=== PATIENT | female | born 1980 | race Caucasian/White ===

== ENCOUNTER 2018-09-16 20:43 | Emergency (ER) | payer MEDICAID ==
[2018-09-16] MEDS ORDERED: LORazepam 1 MG Tab PO ONE (21:14)
--- NOTE | 2018-09-16 21:25 | EDM.PDOC ---
ED HPI GENERAL MEDICAL PROBLEM - General Chief Complaint: Behavioral/Psych Stated Complaint: ANXIETY Time Seen by Provider: 09/16/18 20:58 Source of Information: Reports: Patient History Limitations: Reports: No Limitations - History of Present Illness INITIAL COMMENTS - FREE TEXT/NARRATIVE: 38-year-old female presents to emergency with chief complaints of tightness in her chest and shortness of breath that started approximately 2 hours prior to arrival. She reports she has a history of anxiety. She reports that she moved from [place] about 3 weeks ago. She states that she has been stressed out lately from the move and other events that had taken place recently. She states that she was taking Xanax when necessary in the past. She has not taken anything for her anxiety prior to arrival. She reports that she has been otherwise in good health. She does admit to smoking. She reports that she has used marijuana in the past for her anxiety. She does admit being in past relationship which was "unhealthy." She does not currently have a PCP since she is new to the area Onset: Today, Sudden Onset Date: 09/16/18 Duration: Intermittent, Waxing/Waning Location: Reports: Chest. Denies: Radiates to Severity: Mild Improves with: Reports: None Worsens with: Reports: None Associated Symptoms: Reports: Chest Pain, Fever/Chills, Nausea/Vomiting, Shortness of Breath. 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: Neurological History: Reports: Migraines, Seizure Psychiatric History: Reports: ADD, ADHD, Anxiety, Depression - Past Surgical History HEENT Surgical History: Reports: Oral Surgery, Tonsillectomy Musculoskeletal Surgical History: Reports: Other (See Below) Other Musculoskeletal Surgeries/Procedures:: degenerative disk disease Social & Family History - Family History Family Medical History: Noncontributory - Tobacco Use Smoking Status *Q: Current Every Day Smoker Years of Tobacco use: 25 Packs/Tins Daily: 0.5 - Caffeine Use Caffeine Use: Reports: Soda - Recreational Drug Use Recreational Drug Use: No ED ROS GENERAL - Review of Systems Review Of Systems: ROS reveals no pertinent complaints other than HPI. Constitutional: Denies: Fever, Chills Respiratory: Reports: Shortness of Breath Cardiovascular: Reports: Chest Pain Endocrine: Reports: Fatigue GI/Abdominal: Reports: No Symptoms : Reports: No Symptoms Musculoskeletal: Reports: No Symptoms Skin: Reports: No Symptoms Neurological: Reports: No Symptoms Psychiatric: Reports: No Symptoms Hematologic/Lymphatic: Reports: No Symptoms Immunologic: Reports: No Symptoms - Physical Exam Exam: See Below Exam Limited By: No Limitations General Appearance: Alert, WD/WN, No Apparent Distress Neck: Normal Inspection, Supple, Non-Tender Respiratory/Chest: No Respiratory Distress, Lungs Clear, Normal Breath Sounds, No Accessory Muscle Use, Chest Non-Tender Cardiovascular: Normal Peripheral Pulses, Regular Rate, Rhythm, No Edema, No Gallop, No JVD, No Murmur, No Rub Neuro Exam (Abbreviated): Alert, Oriented, CN II-XII Intact, Normal Cognition, Normal Gait, Normal Reflexes, No Motor/Sensory Deficits Psychiatric: Anxious, Depressed Mood, Other (Patient is crying during the interview appears very anxious.) Skin Exam: Warm, Dry, Intact, Normal Color, No Rash EKG INTERPRETATION EKG Date: 09/16/18 Time: 21:41 Rhythm: NSR Pateros: Normal P-Wave: Present QRS: Normal ST-T: Normal QT: Normal Comparison: NA - No Prior EKG EKG Interpretation Comments: NSR, NO AVB. PROBABLE ZARINA. NO ISCHEMIC CHANGES, NO LAD/RAD. NO LVU/RUU. NO IVCDS. QTA WNLS. Course - Vital Signs Last Recorded V/S: Last Vital Signs Temp 97.2 F 09/16/18 20:58 Pulse 103 H 09/16/18 20:58 Resp 16 09/16/18 20:58 BP 174/115 H 09/16/18 22:00 Pulse Ox 100 09/16/18 20:58 - Orders/Labs/Meds Orders: Active Orders 24 hr Category Date Time Status EKG Documentation Completion [RC] STAT Care 09/16/18 21:13 Active CXR [Chest 1V Frontal] [CR] Stat Exams 09/16/18 21:13 Taken Labs: Laboratory Tests 09/16/18 09/16/18 Range/Units 21:25 21:25 WBC 7.93 (3.98-10.04) K/mm3 RBC 4.77 (3.98-5.22) M/mm3 Hgb 12.2 (11.2-15.7) gm/L Hct 38.4 (34.1-44.9) % MCV 80.5 (79.4-94.8) fl MCH 25.6 (25.6-32.2) pg MCHC 31.8 L (32.2-35.5) g/dl RDW Std Deviation 46.4 H (36.4-46.3) fL Plt Count 282 (182-369) K/mm3 MPV 11.4 (9.4-12.3) fl Neut % (Auto) 58.5 (34.0-71.1) % Lymph % (Auto) 28.8 (19.3-51.7) % [place] % (Auto) 8.2 (4.7-12.5) % Eos % (Auto) 3.3 (0.7-5.8) Baso % (Auto) 0.9 (0.1-1.2) % Neut # (Auto) 4.65 (1.56-6.13) K/mm3 Lymph # (Auto) 2.28 (1.18-3.74) K/mm3 [place] # (Auto) 0.65 H (0.24-0.36) K/mm3 Eos # (Auto) 0.26 (0.04-0.36) K/mm3 Baso # (Auto) 0.07 (0.01-0.08) K/mm3 Sodium 138 (136-145) mEq/L Potassium 3.7 (3.5-5.1) mEq/L Chloride 104 (98-107) mEq/L Carbon Dioxide 23 (21-32) mEq/L Anion Gap 14.7 (5-15) BUN 18 (7-18) mg/dL Creatinine 0.9 (0.55-1.02) mg/dL Est Cr Clr Drug Dosing 85.50 mL/min Estimated GFR (MDRD) > 60 (>60) mL/min BUN/Creatinine Ratio 20.0 H (14-18) Glucose 90 (74-106) mg/dL Calcium 8.8 (8.5-10.1) mg/dL Total Bilirubin 0.3 (0.2-1.0) mg/dL AST 19 (15-37) U/L ALT 24 (14-59) U/L Alkaline Phosphatase 98 (46-116) U/L Total Protein 7.5 (6.4-8.2) g/dl Albumin 3.5 (3.4-5.0) g/dl Globulin 4.0 gm/dL Albumin/Globulin Ratio 0.9 L (1-2) Meds: Medications Discontinued Medications Generic Name Dose Route Start Last Admin Trade Name Mao PRN Reason Stop Dose Admin Lorazepam 1 mg 09/16/18 21:14 09/16/18 21:32 Ativan PO 09/16/18 21:15 1 mg ONETIME ONE Administration - Re-Assessments/Exams Free Text/Narrative Re-Assessment/Exam: 09/16/18 21:35 Patient is very tearful and anxious during interview and examination. I will medicate with Ativan 1 mg by mouth 09/16/18 21:43 Preliminary x-ray reveals no acute findings. It is a change after radiologist raises I will contact the patient. 09/16/18 21:59 EKG reveals normal sinus rhythm with probable ZARINA. 09/16/18 22:07 Her rechecked blood pressure remains elevated at 174/115. I feel this is due to anxiety 09/16/18 22:20 Her labs were unremarkable. I will discharge home with Atarax for anxiety. Instructed patient to follow up with [facility] for evaluation and treatment of her anxiety. I also instructed patient to follow up with Dr. Becker for primary PCP for management of anxiety. Instructed patient to return to the emergency room for any new or acutely worsening symptoms. Departure - Departure Time of Disposition: 22:41 Disposition: Home, Self-Care 01 Condition: Good Clinical Impression: Anxiety, Chest pain, atypical - Discharge Information *PRESCRIPTION DRUG MONITORING PROGRAM REVIEWED*: Not Applicable *COPY OF PRESCRIPTION DRUG MONITORING REPORT IN PATIENT АНДРЕЙ: Not Applicable Prescriptions: hydrOXYzine pamoate [Vistaril] 25 mg PO Q6H 10 Days #30 cap Instructions: Generalized Anxiety Disorder, Adult, Living With Anxiety Referrals: Sandra Becker MD [Physician] - Forms: ED Department Discharge Additional Instructions: Given diagnosed with anxiety attack. Her EKG was normal chest x-ray was normal and your blood studies were normal. I recommend that she follow up with [facility] for further evaluation and treatment of your anxiety. follow up with Dr. Becker (PCP) for evaluation and treatment of anxiety and depression. - My Orders Last 24 Hours: My Active Orders 09/16/18 21:13 EKG Documentation Completion [RC] STAT CXR [Chest 1V Frontal] [CR] Stat - Assessment/Plan Last 24 Hours: My Active Orders 09/16/18 21:13 EKG Documentation Completion [RC] STAT CXR [Chest 1V Frontal] [CR] Stat
--- NOTE | 2018-09-17 09:26 | CR ---
Chest: Frontal view of the chest was obtained. Comparison: No prior chest x-ray. Heart size and mediastinum are within normal limits. Lungs are clear. Bony structures are grossly intact. Impression: 1. Nothing acute is seen on frontal chest x-ray. Diagnostic code #1
== END 2018-09-16 22:50 | disposition home or self-care (01) ==
LOC: JD.ED 20:43
DX: F41.9 Anxiety disorder, unspecified (principal); R07.89 Other chest pain; F17.210 Nicotine dependence, cigarettes, uncomplicated; I10 Essential (primary) hypertension
CPT/HCPCS: 36415; 71045; 80053; 85025; 93005; 99284; A9270; 93010

== ENCOUNTER 2018-11-02 21:10 | Emergency (ER) | payer MEDICAID ==
[2018-11-02] MEDS ORDERED: Ketorolac 30 MG/ML SDV IVPUSH ONE (22:26)
[2018-11-02] MEDS ORDERED: Orphenadrine 100 MG Tab.ER PO SCH (22:26)
[2018-11-02] MEDS ORDERED: Lisinopril 10 MG Tab PO ONE (23:05)
--- NOTE | 2018-11-02 23:10 | EDM.PDOC ---
<Sonia Adler - Last Filed: 11/02/18 23:18> ED HPI GENERAL MEDICAL PROBLEM - General Chief Complaint: Lower Extremity Injury/Pain Stated Complaint: [facility] Time Seen by Provider: 11/02/18 21:46 Source of Information: Reports: Patient History Limitations: Reports: No Limitations - History of Present Illness INITIAL COMMENTS - FREE TEXT/NARRATIVE: 38 y/o female presents to ER with cc right posterior knee and inner thigh "burning and painful." She states this has been bothering her for the past 1.5 weeks but today it just got worse. She states she is on her feet all day long and it makes it worse. She didn't take anything for her symptoms because "she doesn't have any money to buy medications." She denies chest pain, or SOB, fever or chills. She also c/o right hip pain that radiates down her leg. She denies any numbness or tingling. She denies any incontinences of bowel or bladder. Onset Date: 11/01/18 Onset Time: 09:00 Duration: Getting Worse Location: Reports: Lower Extremity, Right, Other Quality: Reports: Ache Severity: Mild Improves with: Reports: None Worsens with: Reports: Other (standing long periods of time) Associated Symptoms: Denies: Chest Pain, Cough, Fever/Chills, Nausea/Vomiting, Shortness of Breath Right Lower Leg Pain Score (Numeric/FACES): 7 - Related Data Allergies Allergy/AdvReac Type Severity Reaction Status Date / Time No Known Allergies Allergy Verified 11/02/18 21:30 Home Meds: Home Meds Lisinopril 20 mg PO DAILY #30 tablet 11/03/18 [Rx] Rivaroxaban [Xarelto] 15 mg PO BID #42 tablet 11/03/18 [Rx] Rivaroxaban [Xarelto] 20 mg PO DAILY #33 tablet 11/03/18 [Rx] amLODIPine Besylate [Amlodipine Besylate] 10 mg PO DAILY #30 tablet 11/03/18 [Rx ] oxyCODONE HCl/Acetaminophen [Percocet 5-325 mg Tablet] 1 - 2 each PO Q4H PRN # 20 tablet 11/03/18 [Rx] Past Medical History 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: Reports: 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: Neurological History: Reports: Migraines, Seizure Psychiatric History: Reports: ADD, ADHD, Anxiety, Depression - Past Surgical History HEENT Surgical History: Reports: Oral Surgery, Tonsillectomy Musculoskeletal Surgical History: Reports: Other (See Below) Other Musculoskeletal Surgeries/Procedures:: degenerative disk disease Social & Family History - Family History Family Medical History: Noncontributory - Tobacco Use Smoking Status *Q: Current Every Day Smoker Years of Tobacco use: 20 Packs/Tins Daily: 0.5 - Caffeine Use Caffeine Use: Reports: Soda - Recreational Drug Use Recreational Drug Use: No Review of Systems - Review of Systems Review Of Systems: See Below Constitutional: Denies: Chills, Fever, Weakness Eyes: Reports: No Symptoms Ears: Reports: No Symptoms Nose: Reports: No Symptoms Mouth/Throat: Reports: No Symptoms Respiratory: Denies: Shortness of Breath Cardiovascular: Reports: Other (uncontrolled hypertension). Denies: Chest Pain GI/Abdominal: Reports: No Symptoms Genitourinary: Reports: No Symptoms Musculoskeletal: Reports: Leg Pain (right posterior knee and thigh pain) Skin: Reports: No Symptoms Neurological: Reports: No Symptoms. Denies: Numbness, Tingling Psychiatric: Reports: Depression, Anxiety ED EXAM, GENERAL - Physical Exam Exam: See Below Exam Limited By: No Limitations General Appearance: Alert, WD/WN, No Apparent Distress Respiratory/Chest: No Respiratory Distress, Lungs Clear, Normal Breath Sounds, No Accessory Muscle Use, Chest Non-Tender Cardiovascular: Normal Peripheral Pulses, Regular Rate, Rhythm, No Edema, No Gallop, No JVD, No Murmur, No Rub Peripheral Pulses: 4+: Popliteal (L), Popliteal (R), Posterior Tibial (L), Posterior Tibial (R), Dorsalis Pedis (L), Dorsalis Pedis (R) GI/Abdominal: Normal Bowel Sounds, Soft, Non-Tender, No Organomegaly, No Distention, No Abnormal Bruit, No Mass Back Exam: Normal Inspection, Full Range of Motion (She has full ROM including ROM against resistance. She is able to bend, stoop, twist and dorsi-flex toes. Her skin in intact with normal temperature and sensation. ) Extremities: Normal Inspection, Normal Range of Motion, Non-Tender, No Pedal Edema, Normal Capillary Refill, Leg Pain. No: Latanya's Sign, Increased Warmth, Redness Neurological: Alert, Oriented, CN II-XII Intact, Normal Cognition, Normal Gait, Normal Reflexes, No Motor/Sensory Deficits Psychiatric: Anxious, Depressed Mood, Tearful Skin Exam: Warm, Dry, Intact, Normal Color, No Rash Lymphatic: No Adenopathy Course - Vital Signs Last Recorded V/S: Last Vital Signs Temp 35.9 C 11/02/18 21:16 Pulse 102 H 11/02/18 21:16 Resp 16 11/02/18 21:16 BP 130/100 H 11/03/18 02:14 Pulse Ox 99 11/02/18 21:16 - Orders/Labs/Meds Orders: Active Orders 24 hr Category Date Time Status VL Duplex Lwr Ext Veins Ltd Rt [US] Stat Exams 11/02/18 23:25 Taken ANTICARDIOLIPIN AB, IGG, QN [REF] Stat Lab 11/03/18 01:00 Received ANTITHROMBIN ACTIVITY [REF] Stat Lab 11/03/18 01:00 Received FACTOR V LEIDEN MUTATION [REF] Stat Lab 11/03/18 01:00 Received PROTEIN C-FUNCTIONAL [REF] Stat Lab 11/03/18 01:00 Received PROTEIN S-FUNCTIONAL [REF] Stat Lab 11/03/18 01:00 Received Orphenadrine [Norflex] Med 11/02/18 22:26 Active 100 mg PO BEDTIME Medication Orders Orphenadrine Citrate (Norflex) 100 mg PO BEDTIME NICOLETTE Last Admin: 11/02/18 22:46 Dose: 100 mg Labs: Laboratory Tests 11/02/18 Range/Units 22:48 D-Dimer, Quantitative 0.74 H (0.19-0.50) mg/L Meds: Medications Generic Name Dose Route Start Last Admin Trade Name Freq PRN Reason Stop Dose Admin Orphenadrine Citrate 100 mg 11/02/18 22:26 11/02/18 22:46 Norflex PO 100 mg BEDTIME NICOLETTE Administration Discontinued Medications Generic Name Dose Route Start Last Admin Trade Name Freq PRN Reason Stop Dose Admin Amlodipine Besylate 10 mg 11/03/18 01:50 11/03/18 02:14 Norvasc PO 11/03/18 01:51 10 mg ONETIME ONE Administration Hydralazine HCl 10 mg 11/03/18 01:00 11/03/18 01:59 Apresoline IVPUSH 11/03/18 01:01 10 mg ONETIME ONE Administration Hydromorphone HCl 1 mg 11/03/18 00:46 11/03/18 01:04 Dilaudid IVPUSH 11/03/18 00:47 1 mg ONETIME ONE Administration Ketorolac Tromethamine 30 mg 11/02/18 22:26 11/02/18 22:46 Toradol IVPUSH 11/02/18 22:27 30 mg ONETIME ONE Administration Lisinopril 10 mg 11/02/18 23:05 11/02/18 23:16 Prinivil PO 11/02/18 23:06 10 mg ONETIME ONE Administration Ondansetron HCl 4 mg 11/03/18 00:46 11/03/18 01:02 Zofran IVPUSH 11/03/18 00:47 4 mg ONETIME ONE Administration Rivaroxaban 20 mg 11/03/18 00:34 11/03/18 01:07 Xarelto PO 11/03/18 00:35 20 mg ONETIME ONE Administration - Re-Assessments/Exams Free Text/Narrative Re-Assessment/Exam: 11/02/18 23:23 Her D-dimer is elevated 0.74. She received Toradol and Norflex and her pain improved. I transferred care to Dr. Stevens who will assume care at this time. Departure - Departure Disposition: Home, Self-Care 01 Clinical Impression: History of uncontrolled hypertension Deep vein thrombosis (DVT) of proximal vein of right lower extremity Qualifiers: Chronicity: acute Qualified Code(s): I82.4Y1 - Acute embolism and thrombosis of unspecified deep veins of right proximal lower extremity - Discharge Information Prescriptions: amLODIPine Besylate [Amlodipine Besylate] 10 mg PO DAILY #30 tablet Lisinopril 20 mg PO DAILY #30 tablet oxyCODONE HCl/Acetaminophen [Percocet 5-325 mg Tablet] 1 - 2 each PO Q4H PRN # 20 tablet PRN Reason: pain relief. Rivaroxaban [Xarelto] 15 mg PO BID #42 tablet Rivaroxaban [Xarelto] 20 mg PO DAILY #33 tablet Instructions: Pain Medicine Instructions, Arol-ib-Ghoc, Deep Vein Thrombosis Referrals: PCP,None [Primary Care Provider] - Forms: ED Department Discharge, ED Return to Work/School Form Additional Instructions: Evaluation the emergency room tonight in regards to gradually worsening pain in your right extremity from the groin to the ankle over the last 8-10 days. Worse over the last 3 days. Examination by nurse practitioner sonia Adler was concerning for possible blood clot in your right lower extremity. A d-dimer blood test was ordered and did come back mildly elevated. This in turn then precipitated a Doppler ultrasound of the right lower extremity which confirmed a blood clot up high in your right thigh. This is the reason the leg is hurting so bad. Further lab tests were drawn which will look into genetic factors that would make you more likely to develop a blood clot in your leg since you have had no injury or reason to develop a blood clot. Treatment is to be off your leg is much as possible for the next 3 days and trying to elevate it as much as possible for 3 days. May apply heat pack to the sore tender areas in the medial thigh. You will need to take medication Xarelto--15 mg twice daily for the next 3 weeks and then 20 mg once a day for another 9 weeks to complete 12 weeks of therapy to dissolve blood clot and prevent recurrence of another blood clot. If your lab tests come back positive which will be in about a week she'll indeed indication that you have a genetic predisposition to developing a blood clot he will have to stay on medication for the rest of your life. I will send you home with pain medications to be taken as needed for the next 3 or 4 days until the blood clot starts to dissolve and the swelling of your leg goes down. The second problem is uncontrolled blood pressure. You recently stopped medications that you had been on for blood pressure relief including clonidine and lisinopril. You're given hydralazine 10 mg intravenously to bring her blood pressure down in the ED. It is my advice that you start amlodipine 10 mg tell once daily for blood pressure control and lisinopril 20 mg once daily for blood pressure control. You'll need to follow-up with a doctor in regards to blood pressure management. Suggest Dr. Ofe Becker on the third floor of the side of the hospital. Please call [phone] to arrange a follow-up appointment in about 2 weeks' time. - My Orders Last 24 Hours: My Active Orders 11/03/18 01:00 ANTICARDIOLIPIN AB, IGG, QN [REF] Stat ANTITHROMBIN ACTIVITY [REF] Stat FACTOR V LEIDEN MUTATION [REF] Stat PROTEIN C-FUNCTIONAL [REF] Stat PROTEIN S-FUNCTIONAL [REF] Stat - Assessment/Plan Last 24 Hours: My Active Orders 11/03/18 01:00 ANTICARDIOLIPIN AB, IGG, QN [REF] Stat ANTITHROMBIN ACTIVITY [REF] Stat FACTOR V LEIDEN MUTATION [REF] Stat PROTEIN C-FUNCTIONAL [REF] Stat PROTEIN S-FUNCTIONAL [REF] Stat <Pantera Stevens - Last Filed: 11/03/18 02:39> Course - Re-Assessments/Exams Free Text/Narrative Re-Assessment/Exam: 11/03/18 00:24 are has been assumed from nurse practitioner Sonia Adler. The d- dimer did come back positive but only mildly so. However when I visited with the patient she's had increasing pain in the leg primarily in the calf and then working its way up the leg over the last week or perhaps even a few days longer. She is exquisitely tender in the distribution of the greater saphenous vein particularly around the popliteal fossa. She has no history of previous DVT. Doppler ultrasound is being completed at this time. 11/03/18 00:32 Doppler ultrasound reveals a thrombus in the greater saphenous vein in the superior thigh that traverses the kneeand that is very close to the common femoral vein superiorly.. Patient will be started on Xarelto 15 mg twice a day for the next 3 weeks then 20 mg once a day for another 9 weeks to complete 3 months of therapy. I have sent blood away for clotting factor deficiencies that would make her more prone to forming a spontaneous DVT. She's had no trauma to the leg to provoke development of a DVT. 11/03/18 00:38 Discussed the findings with the patient. She'll have to be redrawn for labs. She is having quite a bit of pain in her right thigh that has been uncontrolled with Toradol. I will give her Dilaudid 1 mg IV and Zofran 4 mg IV. When she has her labs drawn she will receive 20 mg of Xarelto by mouth since we don't have the 15 mg tablets in the hospital. 11/03/18 02:37 blood pressures been drip and brought down to 123/83 after hydralazine 10 mg IV. She was also given amlodipine 10 mg by mouth which will take several hours to work. She was given prescription for amlodipine 10 mg once daily and lisinopril 20 mg once daily for blood pressure regulation.. For Xarelto 15 mg twice a day for the next 3 weeks. Then she is to take 20 mg once daily for the next 2-1/2 months. Advise follow-up with Dr. Ofe Becker in 10 days' time .Note given to excuse her from the work place for the next 3 days Departure - Departure Time of Disposition: 02:38 Condition: Fair - Discharge Information *PRESCRIPTION DRUG MONITORING PROGRAM REVIEWED*: No *COPY OF PRESCRIPTION DRUG MONITORING REPORT IN PATIENT АНДРЕЙ: No - My Orders Last 24 Hours: My Active Orders 11/03/18 01:00 ANTICARDIOLIPIN AB, IGG, QN [REF] Stat ANTITHROMBIN ACTIVITY [REF] Stat FACTOR V LEIDEN MUTATION [REF] Stat PROTEIN C-FUNCTIONAL [REF] Stat PROTEIN S-FUNCTIONAL [REF] Stat - Assessment/Plan Last 24 Hours: My Active Orders 11/03/18 01:00 ANTICARDIOLIPIN AB, IGG, QN [REF] Stat ANTITHROMBIN ACTIVITY [REF] Stat FACTOR V LEIDEN MUTATION [REF] Stat PROTEIN C-FUNCTIONAL [REF] Stat PROTEIN S-FUNCTIONAL [REF] Stat
[2018-11-03] MEDS ORDERED: Rivaroxaban 10 MG Tab PO ONE (00:34)
[2018-11-03] MEDS ORDERED: Ondansetron 4 MG/2 ML SDV IVPUSH ONE (00:46)
[2018-11-03] MEDS ORDERED: HYDROmorphone 1 MG/ML Syringe IVPUSH ONE (00:46)
[2018-11-03] MEDS ORDERED: hydrALAZINE 20 MG/ML SDV IVPUSH ONE (01:00)
[2018-11-03] MEDS ORDERED: amLODIPine 10 MG Tab PO ONE (01:50)
--- NOTE | 2018-11-03 07:10 | US ---
Right lower extremity deep venous ultrasound: Duplex and color flow imaging was obtained of the right common femoral, proximal greater saphenous, superficial femoral, popliteal, posterior tibial and peroneal veins. Findings: Thrombus identified through a large portion of the greater saphenous vein. This thrombus does not extend into the common femoral vein but stops at the junction of the saphenous to common femoral vein. Deep veins show normal phasic flow, augmentation and compression. Impression: 1. Diffuse venous thrombosis within the greater saphenous vein. 2. No findings of deep venous thrombosis are otherwise seen within the right lower extremity. Diagnostic code #3 I agree with preliminary report from [facility], finalized on 11/03/18, 1:53 AM Central Time
== END 2018-11-03 02:39 | disposition home or self-care (01) ==
LOC: JD.ED 21:10
DX: I82.4Y1 Acute embolism and thrombosis of unspecified deep veins of right proximal lower extremity (principal); I10 Essential (primary) hypertension; F17.210 Nicotine dependence, cigarettes, uncomplicated; Z79.899 Other long term (current) drug therapy
CPT/HCPCS: 36415; 81241; 85300; 85303; 85306; 85379; 86147; 93971; 96374; 96375; 99284; A9270; J0360; J1170; J1885; J2405